=== PATIENT | female | born 1985 | race American Indian/Alaskan Native ===

== ENCOUNTER 2018-11-21 21:27 | Emergency (ER) | payer SELFPAY ==
[2018-11-21 22:19] VITALS: BP 116/87
--- NOTE | 2018-11-21 22:21 | Emergency Department Report ---
ED Eye Problem HPI - General Chief complaint: Eye Problems Stated complaint: EYE IRRITATION Time Seen by Provider: 11/21/18 22:16 Source: patient Mode of arrival: Ambulatory Limitations: No Limitations - History of Present Illness Initial comments: pt is a 33 yo female who presents to the ED with c/o bilateral eye pain that began 5 days ago. she has erythema of the bilateral eyes. states she has had white eye drainage, eyelash matting, crusting. no fever. states her had conjunctivitis. no contact use. she does not report anything getting in the eye. no PMhx, no allergies to meds - Related Data Previous Rx's Medication Instructions Recorded Last Taken Type Erythromycin [Erythromycin Ophth 0.5 inch OP QID 7 Days #1 tube 11/21/18 Unknown Rx Oint] Allergies Allergy/AdvReac Type Severity Reaction Status Date / Time No Known Allergies Allergy Unverified 11/21/18 21:55 ED Review of Systems ROS: Stated complaint: EYE IRRITATION Other details as noted in HPI Comment: All other systems reviewed and negative ED Past Medical Hx - Medications Home Medications: Home Medications Medication Instructions Recorded Confirmed Last Taken Type Erythromycin [Erythromycin Ophth 0.5 inch OP QID 7 Days #1 tube 11/21/18 Unknown Rx Oint] ED Physical Exam - General Limitations: No Limitations General appearance: alert, in no apparent distress - Head Head exam: Present: atraumatic, normocephalic - Eye Eye exam: Present: PERRL, EOMI, conjunctival injection (bilaterally with mucus drainage in the bilateral corners of the eyes ) - ENT ENT exam: Present: mucous membranes moist - Neurological Exam Neurological exam: Present: alert, oriented X3 - Psychiatric Psychiatric exam: Present: normal affect, normal mood - Skin Skin exam: Present: warm, dry, intact ED Course Vital Signs 11/21/18 22:16 Temperature 98.4 F Pulse Rate 80 Respiratory 18 Rate Blood Pressure 116/87 [Right] O2 Sat by Pulse 98 Oximetry ED Medical Decision Making - Medical Decision Making pt is a 33 yo female who presents to the ED with c/o bilateral eye pain that began 5 days ago. she has erythema of the bilateral eyes. states she has had white eye drainage, eyelash matting, crusting. no fever. states her had conjunctivitis. no contact use. she does not report anything getting in the eye. no PMhx, no allergies to meds. examination consistent with bilateral conjunctivitis. pt given prescription for erythromycin. advised to please use medication as prescribed. follow up with a primary care doctor in the next 2-3 days. return to the emergency room for any new or worsening symptoms. Critical care attestation.: If time is entered above; I have spent that time in minutes in the direct care of this critically ill patient, excluding procedure time. ED Disposition Clinical Impression: Conjunctivitis Qualifiers: Conjunctivitis type: acute Acute conjunctivitis type: unspecified Laterality: bilateral Qualified Code(s): H10.33 - Unspecified acute conjunctivitis, bilateral Disposition: TO HOME OR SELFCARE Is pt being admited?: No Does the pt Need Aspirin: No Condition: Stable Instructions: Conjunctivitis (ED) Additional Instructions: please use medication as prescribed. follow up with a primary care doctor in the next 2-3 days. return to the emergency room for any new or worsening symptoms. Prescriptions: Erythromycin [Erythromycin Ophth Oint] 0.5 inch OP QID 7 Days #1 tube Referrals: [facility] [Outside] - 2-3 Days [facility] [Outside] - 2-3 Days [facility] [Provider Group] - 2-3 Days Time of Disposition: 22:20 Print Language: PASHTO
== END 2018-11-21 22:35 | disposition home or self-care (01) ==
LOC: ED 21:27
DX: H10.33 Unspecified acute conjunctivitis, bilateral (principal)
CPT/HCPCS: 99282

== ENCOUNTER 2018-11-28 20:28 | Emergency (ER) | payer MEDICAID ==
--- NOTE | 2018-11-28 20:52 | Event Note ---
ED Screening Note ED Screening Note: pt states she was in the ED last week for conjunctivitis was given erythromycin ointment states she has blurred vision having white drainage states her had the same thing no PMHx does not wear contacts did not get anything in the eye This initial assessment/diagnostic orders/clinical plan/treatment(s) is/are subject to change based on patients health status, clinical progression and re- assessment by fellow clinical providers in the ED. Further treatment and workup at subsequent clinical providers discretion. Patient/guardian urged not to elope from the ED as their condition may be serious if not clinically assessed and managed. Initial orders include: visual acuity, exam
[2018-11-28 20:54] VITALS: BP 123/100
[2018-11-28] MEDS ORDERED: IBUPROFEN PO ONE (23:11)
[2018-11-28] MEDS ORDERED: BENADRYL PO ONE (23:11)
--- NOTE | 2018-11-28 23:16 | Emergency Department Report ---
[facility] Chief Complaint: Eye Problems Stated Complaint: PINK EYE Time Seen by Provider: 11/28/18 20:50 Duration: Today Side: Bilateral Severity: moderate Symptoms: Yes Eye Itching, Yes Eye Redness, Yes Mucous Drainage, Yes Purulent Drainage, Yes Blurred Vision, No Fever, No Headache ED Review of Systems ROS: Stated complaint: PINK EYE Other details as noted in HPI Constitutional: denies: chills, fever Eyes: eye pain, eye discharge, vision change (blurred due to mucus.) ENT: denies: ear pain, throat pain Respiratory: denies: cough, shortness of breath, wheezing Cardiovascular: denies: chest pain, palpitations Endocrine: no symptoms reported Gastrointestinal: denies: abdominal pain, nausea, diarrhea Genitourinary: denies: urgency, dysuria, discharge Musculoskeletal: denies: back pain, joint swelling, arthralgia Skin: denies: rash, lesions Neurological: denies: headache, weakness, paresthesias Psychiatric: denies: anxiety, depression Hematological/Lymphatic: denies: easy bleeding, easy bruising ED Past Medical Hx - Past Medical History Previous Medical History?: Yes Hx Hypertension: No Hx CVA: No Hx Heart Attack/AMI: No Hx Congestive Heart Failure: No Hx Diabetes: No Hx Deep Vein Thrombosis: No Hx Pulmonary Embolism: No Hx GERD: No Hx Liver Disease: No Hx Renal Disease: No Hx Sickle Cell Disease: No Hx Arthritis: No Hx Headaches / Migraines: No Hx Seizures: No Hx Kidney Stones: No Hx Psychiatric Treatment: No Hx Asthma: No Hx COPD: No Hx Tuberculosis: No Hx Dementia: No Hx HIV: No - Surgical History Past Surgical History?: Yes Hx Coronary Stent: No Hx Open Heart Surgery: No Hx Pacemaker: No Hx Internal Defibrillator: No Hx Cholecystectomy: No Hx Appendectomy: No Hx Breast Surgery: No Additional Surgical History: c section - Social History Smoking Status: Current Every Day Smoker Substance Use Type: Marijuana - Medications Home Medications: Home Medications Medication Instructions Recorded Confirmed Last Taken Type Erythromycin [Erythromycin Ophth 0.5 inch OP QID 7 Days #1 tube 11/21/18 Unknown Rx Oint] Ciprofloxacin HCl 2 drops OU Q3H 10 Days #10 ml 11/28/18 Unknown Rx Ibuprofen [Motrin 800 MG tab] 800 mg PO Q8HR PRN #30 tablet 11/28/18 Unknown Rx Ketotifen Fumarate [Zaditor] 2 drop OP BID PRN #5 ml 11/28/18 Unknown Rx [facility] Exam - Exam General: Vital signs noted. No distress. Alert and acting appropriately. Eye Exam: Both Injection, Both EOMI, Both Mucous Discharge, Both Purulent Discharge, Neither Chemosis, Neither Abnormal Pupil, Neither Eye Foreign Body, Neither Lid Foreign Body, Neither Photophobia (visual acuity 20/40 bilat ) HEENT: No Nasal Congestion, No Pharyngeal Erythema Remainder of HEENT: Normal Lungs: Yes Clear Lung Sounds, Yes Good Air Exchange, No Wheezes, No Stridor, No Cough, No Nasal Flaring, No Retractions, No Use of Accessory Muscles ED Course Vital Signs 11/28/18 20:50 Temperature 98.2 F Pulse Rate 87 Respiratory 18 Rate Blood Pressure 123/100 O2 Sat by Pulse 97 Oximetry ED Medical Decision Making - Medical Decision Making this is conjunctivitis, plan change abx to Cipro ophthal , zaditor, ibuprofen follow up with ophthalmology tomorrow, visual acuity is 20/40 bilat there is no fever no chills no swelling pt is perrla emoi conjunctival erythema Critical care attestation.: If time is entered above; I have spent that time in minutes in the direct care of this critically ill patient, excluding procedure time. ED Disposition Clinical Impression: Conjunctivitis Qualifiers: Conjunctivitis type: acute Acute conjunctivitis type: bacterial Laterality: bilateral Qualified Code(s): H10.33 - Unspecified acute conjunctivitis, bilater al Disposition: - TO HOME OR SELFCARE Is pt being admited?: No Does the pt Need Aspirin: No Condition: Stable Instructions: Conjunctivitis (ED) Prescriptions: Ciprofloxacin HCl 2 drops OU Q3H 10 Days #10 ml Ibuprofen [Motrin 800 MG tab] 800 mg PO Q8HR PRN #30 tablet PRN Reason: pain Ketotifen Fumarate [Zaditor] 2 drop OP BID PRN #5 ml PRN Reason: Itching Referrals: HILARIA GUILLORY MD [Staff Physician] - 3-5 Days Forms: Work/School Release Form(ED) Time of Disposition: 23:24
== END 2018-11-28 23:30 | disposition home or self-care (01) ==
LOC: ED 20:28
DX: H10.33 Unspecified acute conjunctivitis, bilateral (principal); F17.200 Nicotine dependence, unspecified, uncomplicated; F12.10 Cannabis abuse, uncomplicated; Z79.899 Other long term (current) drug therapy

== ENCOUNTER 2018-12-30 18:00 | Emergency (ER) | payer MEDICAID ==
[2018-12-30 19:31] LABS: HCG Qualitative,Urine Positive (Negative)
[2018-12-30 19:38] LABS: Bilirubin,Urine NEG (Negative); Blood,Urine NEG (Negative); Color,Urine Yellow (Yellow); Mucus,Urine FEW /HPF; Protein,Urine <15 mg/dL mg/dL (Negative)
--- NOTE | 2018-12-30 22:33 | Emergency Department Report ---
ED Abdominal Pain HPI - General Chief Complaint: Abdominal Pain Stated Complaint: STOMACH PAIN Time Seen by Provider: 12/30/18 20:55 Source: patient Mode of arrival: Ambulatory Limitations: No Limitations - History of Present Illness Initial Comments: Patient is a 33-year-old female presents emergency room with complaints of suprapubic abdominal pain that began today. She states she took a test at home and it was positive. she has not seen an PHARMACEUTICAL SALES REPRESENTATIVE. She denies any nausea, vomiting, diarrhea, fever, urinary symptoms, vaginal itching, vaginal irritation, vaginal bleeding. states last mental cycle was November 22. She denies any past medical history or allergies to medications. /P:1/A:1 - Related Data Previous Rx's Medication Instructions Recorded Last Taken Type Erythromycin [Erythromycin Ophth 0.5 inch OP QID 7 Days #1 tube 11/21/18 Unknown Rx Oint] Ciprofloxacin HCl 2 drops OU Q3H 10 Days #10 ml 11/28/18 Unknown Rx Ibuprofen [Motrin 800 MG tab] 800 mg PO Q8HR PRN #30 tablet 11/28/18 Unknown Rx Ketotifen Fumarate [Zaditor] 2 drop OP BID PRN #5 ml 11/28/18 Unknown Rx Allergies Allergy/AdvReac Type Severity Reaction Status Date / Time No Known Allergies Allergy Unverified 11/21/18 21:55 ED Review of Systems ROS: Stated complaint: STOMACH PAIN Other details as noted in HPI Comment: All other systems reviewed and negative ED Past Medical Hx - Past Medical History Hx Hypertension: No Hx CVA: No Hx Heart Attack/AMI: No Hx Congestive Heart Failure: No Hx Diabetes: No Hx Deep Vein Thrombosis: No Hx Pulmonary Embolism: No Hx GERD: No Hx Liver Disease: No Hx Renal Disease: No Hx Sickle Cell Disease: No Hx Arthritis: No Hx Headaches / Migraines: No Hx Seizures: No Hx Kidney Stones: No Hx Psychiatric Treatment: No Hx Asthma: No Hx COPD: No Hx Tuberculosis: No Hx Dementia: No Hx HIV: No - Surgical History Hx Coronary Stent: No Hx Open Heart Surgery: No Hx Pacemaker: No Hx Internal Defibrillator: No Hx Cholecystectomy: No Hx Appendectomy: No Hx Breast Surgery: No Additional Surgical History: c section - Social History Smoking Status: Current Every Day Smoker Substance Use Type: Alcohol, Marijuana - Medications Home Medications: Home Medications Medication Instructions Recorded Confirmed Last Taken Type Erythromycin [Erythromycin Ophth 0.5 inch OP QID 7 Days #1 tube 11/21/18 Unknown Rx Oint] Ciprofloxacin HCl 2 drops OU Q3H 10 Days #10 ml 11/28/18 Unknown Rx Ibuprofen [Motrin 800 MG tab] 800 mg PO Q8HR PRN #30 tablet 11/28/18 Unknown Rx Ketotifen Fumarate [Zaditor] 2 drop OP BID PRN #5 ml 11/28/18 Unknown Rx ED Physical Exam - General Limitations: No Limitations General appearance: alert, in no apparent distress - Head Head exam: Present: atraumatic, normocephalic - Eye Eye exam: Present: normal appearance - ENT ENT exam: Present: mucous membranes moist - Respiratory Respiratory exam: Present: normal lung sounds bilaterally. Absent: respiratory distress, wheezes, rales, rhonchi, stridor, chest wall tenderness, accessory muscle use, decreased breath sounds, prolonged expiratory - Cardiovascular Cardiovascular Exam: Present: regular rate, normal rhythm, normal heart sounds. Absent: systolic murmur, diastolic murmur, rubs, gallop - GI/Abdominal GI/Abdominal exam: Present: soft, normal bowel sounds. Absent: distended, tenderness, guarding, rebound, rigid - Neurological Exam Neurological exam: Present: alert, oriented X3 - Psychiatric Psychiatric exam: Present: normal affect, normal mood - Skin Skin exam: Present: warm, dry, intact ED Course Vital Signs 12/30/18 12/30/18 12/30/18 18:25 23:08 23:09 Temperature 98.5 F 98.6 F Pulse Rate 97 H 89 Respiratory 18 20 20 Rate Blood Pressure 119/75 Blood Pressure 122/76 [Left] O2 Sat by Pulse 100 99 99 Oximetry ED Medical Decision Making - Lab Data Lab Results 12/30/18 12/30/18 Range/Units 19:10 21:09 HCG, Quant 1625 H (0-4) mIU/mL Urine Color Yellow (Yellow) Urine Turbidity Slightly-cloudy (Clear) Urine pH 7.0 (5.0-7.0) Ur Specific [place] 1.023 (1.003-1.030) Urine Protein <15 mg/dl (Negative) mg/dL Urine Glucose (UA) Neg (Negative) mg/dL Urine Ketones Neg (Negative) mg/dL Urine Blood Neg (Negative) Urine Nitrite Neg (Negative) Ur Reducing Substances Not Reportable Urine Bilirubin Neg (Negative) Urine Ictotest Not Reportable Urine Urobilinogen 2.0 (<2.0) mg/dL Ur Leukocyte Esterase Neg (Negative) Urine WBC (Auto) 3.0 (0.0-6.0) /HPF Urine RBC (Auto) 1.0 (0.0-6.0) /HPF U Epithel Cells (Auto) 6.0 (0-13.0) /HPF Urine Mucus Few /HPF Urine HCG, Qual Positive A (Negative) - Radiology Data Radiology results: report reviewed ULTRASOUND OBSTETRIC INDICATION / CLINICAL INFORMATION: preg, abd pain. Clinical Gestational Age (GA): 5 weeks 3 days TECHNIQUE: Transabdominal. COMPARISON: None available. FINDINGS: GESTATIONAL SAC: Tiny gestational sac in the uterus with mean sac diameter of 6 mm corresponding to 5 weeks 2 days. YOLK SAC: Possible tiny yolk sac. EMBRYO/FETUS: No definite pole. - Heart Rate, beats per minute (if present) = not visualized. ADNEXA: 3.4 cm left ovarian cyst. FREE FLUID: None. ADDITIONAL FINDINGS: None. IMPRESSION: 1. Tiny gestational sac in the uterus corresponding to 5 weeks 2 days gestational age. 2. Possible tiny yolk sac but no definite pole. 3. Clinical and sonographic follow-up is recommended. 4. 3.4 cm left ovarian cyst is almost certainly benign. No routine follow-up is needed. Signer Name: Nicky Brian MD Signed: 12/30/2018 10:32 PM Workstation Name: [id number] Transcribed By: DT Dictated By: Markell Brian MD Electronically Authenticated By: Markell Brian MD Signed Date/Time: 12/30/18 223 - Medical Decision Making Patient is a 33-year-old female presents emergency room with complaints of suprapubic abdominal pain that began today. She states she took a test at home and it was positive. she has not seen an PHARMACEUTICAL SALES REPRESENTATIVE. She denies any nausea, vomiting, diarrhea, fever, urinary symptoms, vaginal itching, vaginal irritation, vaginal bleeding. states last mental cycle was November 22. She denies any past medical history or allergies to medications. /P:1/A:1. vitals are normal. no abd tenderness on exam. hcg quant is 1625. UA without evidence of UTI. OB US: 1. Tiny gestational sac in the uterus corresponding to 5 weeks 2 days gestational age. 2. Possible tiny yolk sac but no definite pole. 3. Clinical and sonographic follow-up is recommended. 4. 3.4 cm left ovarian cyst is almost certainly benign. No routine follow-up is needed. advised pt that she may take Tylenol for any discomfort. drink plenty of water. begin taking a daily vitamin over the counter. follow up with an PHARMACEUTICAL SALES REPRESENTATIVE in the next 2-3 days. Return to the emergency room for any new or worsening symptoms. - Differential Diagnosis UTI, IUP, ovarian cyst, ectopic Critical care attestation.: If time is entered above; I have spent that time in minutes in the direct care of this critically ill patient, excluding procedure time. ED Disposition Clinical Impression: Suprapubic abdominal pain Qualifiers: Weeks of gestation: less than 8 weeks Qualified Code(s): Z3A.01 - Less than 8 weeks gestation of Disposition: TO HOME OR SELFCARE Is pt being admited?: No Does the pt Need Aspirin: No Condition: Stable Instructions: (ED), Abdominal Pain in (ED) Additional Instructions: May take Tylenol for any discomfort. drink plenty of water. begin taking a daily vitamin over the counter. follow up with an PHARMACEUTICAL SALES REPRESENTATIVE in the next 2-3 days. Return to the emergency room for any new or worsening symptoms. Referrals: [facility] [Provider Group] - 2-3 Days [facility] [Provider Group] - 2-3 Days [facility] [Provider Group] - 2-3 Days Forms: Work/School Release Form(ED) Time of Disposition: 22:50 Print Language: SWEDISH
--- NOTE | 2018-12-30 22:36 | Ultrasound Report ---
ULTRASOUND OBSTETRIC INDICATION / CLINICAL INFORMATION: preg, abd pain. Clinical Gestational Age (GA): 5 weeks 3 days TECHNIQUE: Transabdominal. COMPARISON: None available. FINDINGS: GESTATIONAL SAC: Tiny gestational sac in the uterus with mean sac diameter of 6 mm corresponding to 5 weeks 2 days. YOLK SAC: Possible tiny yolk sac. EMBRYO/FETUS: No definite pole. - Heart Rate, beats per minute (if present) = not visualized. ADNEXA: 3.4 cm left ovarian cyst. FREE FLUID: None. ADDITIONAL FINDINGS: None. IMPRESSION: 1. Tiny gestational sac in the uterus corresponding to 5 weeks 2 days gestational age. 2. Possible tiny yolk sac but no definite pole. 3. Clinical and sonographic follow-up is recommended. 4. 3.4 cm left ovarian cyst is almost certainly benign. No routine follow-up is needed. Signer Name: Nicky Brian MD Signed: 12/30/2018 10:32 PM Workstation Name: [id number]
[2018-12-30 23:09] VITALS: BP 122/76
== END 2018-12-30 23:16 | disposition home or self-care (01) ==
LOC: ED 18:00
DX: O26.891 Other specified pregnancy related conditions, first trimester (principal); R10.30 Lower abdominal pain, unspecified; O99.331 Smoking (tobacco) complicating pregnancy, first trimester; F17.200 Nicotine dependence, unspecified, uncomplicated; O99.321 Drug use complicating pregnancy, first trimester; F12.10 Cannabis abuse, uncomplicated; Z3A.01 Less than 8 weeks gestation of pregnancy
CPT/HCPCS: 36415; 76801; 76817; 81001; 81025; 84702

== ENCOUNTER 2021-03-22 21:44 | Emergency (ER) | payer MEDICAID ==
[2021-03-22 23:00] VITALS: BP 142/102
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
[2021-03-23] MEDS ORDERED: HYDROcodone/ACETAMINOPHEN 5-325 MG TAB PO STA (02:22)
== END 2021-03-23 02:34 | disposition home or self-care (01) ==
LOC: ED 21:44
DX: S01.81XA Laceration without foreign body of other part of head, initial encounter (principal); X99.8XXA Assault by other sharp object, initial encounter; Y93.89 Activity, other specified; Y92.89 Other specified places as the place of occurrence of the external cause; Y99.8 Other external cause status
CPT/HCPCS: 99282